=== PATIENT | female | born 1995 | race African-American/Black ===

== ENCOUNTER 2017-08-31 14:13 | Emergency (ER) | payer OTHER ==
[~2017-08-31] VITALS: Ht 175.3 cm; Wt 93.0 kg
--- NOTE | ~2017-08-31 | EKG ---
[place] [address] [place] [address] ELECTROCARDIOGRAM REPORT Name: YASMIN MOORE Room #: [id number] Admission: 08/31/17 Attend Phys: Discharge: 08/31/17 Date of : [birth year] Report #: [id number] THIS REPORT FOR: //name// [facility] ED Test Date: 2017-08-31 Test Time: 14:23:59 Pat Name: YASMIN MOORE Department: Room: Gender: F Personal Injury Specialist: Jesus AQUINO RN : 1995 Requested By: Nancy Leal Order Number: [id number] MD: Fidel Vidales Measurements Intervals [place] Rate: 71 P: 21 SD: 103 QRS: 28 QRSD: 96 T: 14 QT: 382 QTc: 416 Interpretive Statements Sinus rhythm Short SD interval No previous ECG available for comparison Electronically Signed On 09-01-2017 8:06:17 CDT by Fidel Vidales [email or web address] <ELECTRONICALLY SIGNED> By: Fidel Vidales MD, [facility] 09/01/17 0806 1423 1423 Fidel Vidales MD, FACC /EPI
[~2017-08-31 14:13] MED LIST: DIVIGEL0.5 MG PO; ESTARYLLA1 EACH PO; IBUPROFEN 600600 M1 PO; METFORMIN HCL500 MG PO; NORCO 5-325 TA1 EACH PO; OMEPRAZOLE40 MG PO; ONDANSETRON HCL4 M2 PO; TRAMADOL 50 MG50 MG PO
[2017-08-31 15:16] LABS: ABSOLUTE NEUTROPHILS 7.7 thou/uL (1.4-8.2); BASOPHILS 0.6 % (0.0-2.0); EOSINOPHILS 0.8 % (0.0-3.0); HEMATOCRIT 42.6 % (37.0-47.0); LYMPHOCYTES 21.1 % (24.0-44.0); MCH 31.3 pg (26.0-34.0); MCHC 35.1 g/dL (28.0-37.0); MCV 88.9 fL (80.0-100.0); MONOCYTES 8.1 % (1.0-8.0); PLATELET COUNT 228 thou/uL (150-400); POLYS 69.4 % (36.0-66.0); RBC 4.79 mil/uL (4.20-5.00); RDW 15.9 % (10.5-14.5); WBC 11.1 thou/uL (4.0-11.0)
[2017-08-31 15:17] LABS: URINE BILIRUBIN NEGATIVE (Negative); URINE BLOOD NEGATIVE (Negative); URINE CLARITY CLEAR; URINE COLOR YELLOW; URINE GLUCOSE-RANDOM* NEGATIVE (Negative); URINE KETONES NEGATIVE (Negative); URINE LEUKOCYTES-REFLEX NEGATIVE (Negative); URINE NITRITE-REFLEX NEGATIVE (Negative); URINE PROTEIN (DIPSTICK) NEGATIVE (Negative); URINE UROBILINOGEN 0.2 E.U./dl (0.2-1.0)
[2017-08-31 15:21] LABS: ANION GAP 5 mmol/L (7-16); BUN 8 mg/dL (7-18); CALCIUM 9.5 mg/dL (8.5-10.1); CHLORIDE 105 mmol/L (98-107); CO2 31 mmol/L (21-32); CREATININE 0.9 mg/dL (0.6-1.0); GLUCOSE 88 mg/dL (74-106); SODIUM 141 mmol/L (136-145)
[2017-08-31 15:29] LABS: TROPONIN-I < 0.04 ng/mL (<0.06)
[2017-08-31 16:57] VITALS: BP 101/66
== END 2017-08-31 16:58 | disposition home or self-care (01) ==
LOC: ER 14:13
PROVIDERS: Emergency Medicine
DX: I45.6 Pre-excitation syndrome (principal); I47.1 Supraventricular tachycardia; R07.9 Chest pain, unspecified; E11.9 Type 2 diabetes mellitus without complications; E28.2 Polycystic ovarian syndrome; Z88.1 Allergy status to other antibiotic agents

== ENCOUNTER → 2019-03-30 | Outpatient (CLI) | payer OTHER ==
--- NOTE | 2019-03-30 15:25 | 2DMMODE ---
[facility] [address] [place] [address] 2 D/M-MODE ECHOCARDIOGRAM Name: YASMIN MOORE Room #: REG [facility]#: [id number] Admission: 03/30/19 Attend Phys: Shirin Charles Discharge: Date of : [birth year] Report #: [id number] THIS REPORT FOR: //name// APPROVED REPORT Study performed: 03/30/2019 14:53:23 EXAM: Comprehensive 2D, Doppler, and color-flow Echocardiogram Patient Location: Out-Patient Status: ADD ON. VICKY BSA: 2.14 HR: 72 bpm BP: 118/80 mmHg Other Information Study Quality: Good Indications Pre-Op. Hx: WPW, PDA closure. 2D Dimensions RVDd: 35.83 mm IVSd: 9.66 (7-11mm) LVOT Diam: 20.63 (18-24mm) LVDd: 49.76 mm PWd: 9.96 (7-11mm) Ascending Ao: 27.69 (22-36mm) LVDs: 35.31 (25-40mm) Aortic Root: 29.94 mm Volumes Left Atrial Volume (Systole) Single Plane 4CH: 24.78 mL Single Plane 2CH: 40.52 mL LA ESV Index: 17.00 mL/m2 Aortic Valve AoV Peak Kiel.: 1.41 m/s AO Peak Gr.: 8.00 mmHg LVOT Max P.09 mmHg LVOT Max V: 1.23 m/s LIZBETH Vmax: 2.92 cm2 Mitral Valve E/A Ratio: 2.5 MV Decel. Time: 205.49 ms MV E Max Kiel.: 0.98 m/s MV A Kiel.: 0.40 m/s [facility] [address] [place] [address] 2 D/M-MODE ECHOCARDIOGRAM Name: OSCARZITACatherine JULIA Room #: [facility]#: [id number] Admission: 03/30/19 Attend Phys: Shirin Charles Discharge: Date of : [birth year] Report #: [id number] MV PHT: 59.59 ms IVRT: 72.66 ms Pulmonary Valve PV Peak Kiel.: 1.26 m/s PV Peak Gr.: 6.35 mmHg Pulmonary Vein P Vein S: 0.46 m/s P Vein D: 0.61 m/s P Vein S/D Ratio: 0.75 Tricuspid Valve TR Peak Kiel.: 1.93 m/s RAP Estimate: 5.00 mmHg TR Peak Gr.: 15.00 mmHg PA Pressure: 20.00 mmHg Left Ventricle The left ventricle is normal size. There is normal LV segmental wall motion. There is normal left ventricular wall thickness. Left ventricular systolic function is normal. LVEF is 60-65%. The left ventricular diastolic function is normal. Right Ventricle The right ventricle is normal size. The right ventricular systolic function is normal. Atria The left atrium size is normal. The right atrium size is normal. Aortic Valve The aortic valve is normal in structure. No aortic regurgitation is present. There is no aortic valvular stenosis. Mitral Valve The mitral valve is normal in structure. Trace mitral regurgitation. No evidence of mitral valve stenosis. Tricuspid Valve The tricuspid valve is normal in structure. Trace tricuspid regurgitation. Estimated PAP is 20mmHg. Pulmonic Valve The pulmonary valve is normal in structure. There is no pulmonic valvular regurgitation. [facility] [address] [place] [address] 2 D/M-MODE ECHOCARDIOGRAM Name: YASMIN MOORE JULIA Room #: REG [facility]#: [id number] Admission: 03/30/19 Attend Phys: Shirin Charles Discharge: Date of : [birth year] Report #: [id number] Great Vessels The aortic root is normal in size. The ascending aorta is normal in size. IVC is normal in size and collapses >50% with inspiration. Pericardium There is no pericardial effusion. <Conclusion> The left ventricle is normal size. There is normal left ventricular wall thickness. Left ventricular systolic function is normal. The left ventricular diastolic function is normal. The right ventricle is normal size. The left atrium size is normal. The aortic valve is normal in structure. Trace mitral regurgitation. Trace tricuspid regurgitation. Estimated PAP is 20mmHg. <ELECTRONICALLY SIGNED> By: Shaheen Guo MD 03/30/19 1525 1525 1525 Shaheen Guo MD /INF
== END ==
LOC: CV 14:29
DX: I47.1 Supraventricular tachycardia (principal); Z87.74 Personal history of (corrected) congenital malformations of heart and circulatory system

== ENCOUNTER → 2020-04-28 | Outpatient (CLI) | payer BC, OTHER | LOC: SJCVCIMAG 06:36 | PROVIDERS: ATTEND Internal Medicine Cardiovascular Disease | DX: R00.0 Tachycardia, unspecified (principal); R94.31 Abnormal electrocardiogram [ECG] [EKG] ==